=== PATIENT | male | born 1965 | race Caucasian/White ===

== ENCOUNTER 2017-09-02 19:55 | Emergency (ER) | payer MEDICAID, OTHER ==
[~2017-09-02] VITALS: Ht 170.2 cm; Wt 65.0 kg
[~2017-09-02 19:55] MED LIST: ALBU8.5H4 IH; CYCL-1 PO; FLUT16SP2 NS; HYDR-565 PO; NO HOME MEDS; [UNRECOGNIZED DRUG - CODE] PO
[2017-09-02] MEDS ORDERED: ketorolac trometh inj. 60 MG/2 ML VIAL IM ONE (22:20)
[2017-09-02] MEDS ORDERED: diazepam 5mg tablet PO ONE (22:25)
[2017-09-02] MEDS ORDERED: HYDROcodone/acetaminophen 10/325mg tab PO ONE (22:25)
[2017-09-02] MEDS ORDERED: CYCL-1 PO (22:44)
[2017-09-02] MEDS ORDERED: IBUP-1984 PO (22:44)
[2017-09-02] MEDS ORDERED: HYDR-565 PO (22:44)
[2017-09-02 23:07] VITALS: BP 162/94
== END 2017-09-02 23:08 | disposition home or self-care (01) ==
LOC: ER 19:56
DX: G89.29 Other chronic pain (principal); M54.9 Dorsalgia, unspecified; F12.90 Cannabis use, unspecified, uncomplicated; Z88.5 Allergy status to narcotic agent; Z79.899 Other long term (current) drug therapy
CPT/HCPCS: 96372; 99284; J1885

== ENCOUNTER 2018-01-17 09:57 | Emergency (ER) | payer MEDICAID, OTHER ==
[~2018-01-17] VITALS: Ht 170.2 cm; Wt 64.0 kg
[~2018-01-17 09:57] MED LIST changes: +HYDR-4353 PO; -HYDR-565 PO
[2018-01-17 09:59] VITALS: BP 173/96
[2018-01-17] MEDS ORDERED: ketorolac tromethamine 15mg/ml inj. IM ONE (10:20)
[2018-01-17] MEDS ORDERED: AMOX500C2 PO (10:34)
== END 2018-01-17 10:46 | disposition home or self-care (01) ==
LOC: ER 09:57
DX: K04.7 Periapical abscess without sinus (principal); R22.0 Localized swelling, mass and lump, head; K02.9 Dental caries, unspecified; K06.1 Gingival enlargement; F12.90 Cannabis use, unspecified, uncomplicated; Z88.6 Allergy status to analgesic agent
CPT/HCPCS: 96372; 99283; J1885

== ENCOUNTER 2018-02-25 22:26 | Emergency (ER) | payer MEDICAID, OTHER ==
[~2018-02-25] VITALS: Ht 170.2 cm; Wt 62.8 kg
[2018-02-25 23:04] LABS: BASOPHILS % (AUTO) 0.2 % (0-1); EOSINOPHILS % (AUTO) 0.8 % (0-6); HEMOGLOBIN 15.4 g/dl (14.0-17.9); LYMPHOCYTES # (AUTO) 0.5 X10'3 (1.1-4.8); LYMPHOCYTES % (AUTO) 10.1 % (21-51); MEAN CORPUSCULAR HEMOGLOBIN 31.7 PG (27.0-31.0); MEAN CORPUSCULAR HGB CONC 34.2 % (33.0-36.5); MEAN CORPUSCULAR VOLUME 92.8 FL (78-98); MEAN PLATELET VOLUME 7.3 FL (7.4-10.4); MONOCYTES # (AUTO) 0.5 X10'3 (0-0.9); MONOCYTES % (AUTO) 10.2 % (2-12); NEUTROPHILS # (AUTO) 4.1 X10'3 (1.8-7.7); NEUTROPHILS % (AUTO) 78.7 % (42-75); PLATELET COUNT 237 X10'3 (140-440); RED BLOOD COUNT 4.84 X10'6 (4.70-6.10); WHITE BLOOD COUNT 5.3 X10'3 (4.5-11.0)
[2018-02-25] MEDS ORDERED: ondansetron/PF 4mg/2ml inj IV ONE (23:15)
[2018-02-25] MEDS ORDERED: normal saline 1000ML IV soln IVB ONE (23:15)
[2018-02-25 23:17] LABS: ALANINE AMINOTRANSFERASE 27 U/L (12-78); ALKALINE PHOSPHATASE 77 IU/L (46-116); ANION GAP 14 (8-16); ASPARTATE AMINO TRANSFERASE 31 U/L (10-37); BILIRUBIN,TOTAL 0.5 MG/DL (0.1-1.0); BLOOD UREA NITROGEN 15 MG/DL (7-18); BUN/CREATININE RATIO 18.3 (5.4-32.0); CALCIUM 9.3 MG/DL (8.5-10.1); CHLORIDE 96 MMOL/L (99-107); CREATININE 0.82 MG/DL (0.60-1.10); GLUCOSE 83 MG/DL (70-104); LIPASE 156 U/L (73-393); POTASSIUM 3.6 MMOL/L (3.5-5.1); SODIUM 136 MMOL/L (135-145); TOTAL CARBON DIOXIDE 26.3 MMOL/L (24-32); TOTAL PROTEIN 8.1 G/DL (6.4-8.2); eGFR > 90 ML/MIN
[2018-02-25 23:21] LABS: CLARITY,URINE CLEAR (Clear); COLOR,URINE YELLOW (Yellow); GLUCOSE, URINE NEGATIVE (Neg); KETONES,URINE 15 mg/dl (Neg); LEUKOCYTE ESTERASE ,URINE NEGATIVE (Neg); NITRITES, URINE NEGATIVE (Neg); OCCULT BLOOD,URINE NEGATIVE (Neg); PROTEIN,URINE NEGATIVE (Neg); UROBILINOGEN,URINE 0.2 E.U/dL (0.2-1.0)
[2018-02-25 23:22] LABS: UA COLLECTION TYPE CLN CATCH MIDSTREAM
[2018-02-25 23:24] LABS: INR 1.1 INR; PROTHROMBIN TIME 10.8 SECONDS (9.0-12.0)
[2018-02-25] MEDS ORDERED: morphine 4 MG/ML inj SYRINge IV ONE (23:55)
[2018-02-26 00:30] VITALS: BP 165/93
== END 2018-02-26 00:58 | disposition home or self-care (01) ==
LOC: ER 22:26
DX: R10.84 Generalized abdominal pain (principal); R11.0 Nausea; G89.29 Other chronic pain; F12.90 Cannabis use, unspecified, uncomplicated; Z88.5 Allergy status to narcotic agent; Z79.899 Other long term (current) drug therapy
CPT/HCPCS: 36415; 74176; 80053; 81003; 83690; 85025; 85610; 96374; 96375; 99284; J2270; J2405; J7030

== ENCOUNTER 2018-10-25 12:22 | Emergency (ER) | payer SELFPAY ==
[~2018-10-25] VITALS: Ht 170.2 cm; Wt 58.0 kg
[2018-10-25] MEDS ORDERED: triamcinolone acetonide 40mg/ml inj IM ONE (14:05)
[2018-10-25] MEDS ORDERED: ketorolac trometh inj. 60 MG/2 ML VIAL IM ONE (14:05)
[2018-10-25] MEDS ORDERED: METH4TAB81 PO (14:32)
[2018-10-25 14:55] VITALS: BP 164/93
== END 2018-10-25 15:07 | disposition home or self-care (01) ==
LOC: ER 12:22
DX: M25.511 Pain in right shoulder (principal); G89.29 Other chronic pain; F10.99 Alcohol use, unspecified with unspecified alcohol-induced disorder; F12.90 Cannabis use, unspecified, uncomplicated; Z88.5 Allergy status to narcotic agent; Z79.899 Other long term (current) drug therapy; Y90.9 Presence of alcohol in blood, level not specified
CPT/HCPCS: 73030; 96372; 99283; J1885; J3301

== ENCOUNTER 2021-07-07 22:08 | Inpatient (IN) | payer OTHER ==
[~2021-07-07] VITALS: Ht 167.6 cm; Wt 65.9 kg
[~2021-07-07 22:08] MED LIST changes: +METH4TAB81 PO
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
[2021-07-08] VITALS (11 sets, daily range): BP systolic 118–150; BP diastolic 67–79
[2021-07-08 00:51] LABS: BASOPHILS % (AUTO) 0.7 % (0-1); EOSINOPHILS # (AUTO) 0.3 X10'3 (0-0.9); EOSINOPHILS % (AUTO) 4.2 % (0-6); HEMOGLOBIN 15.2 g/dl (14.0-17.9); LYMPHOCYTES # (AUTO) 2.2 X10'3 (1.1-4.8); LYMPHOCYTES % (AUTO) 34.2 % (21-51); MEAN CORPUSCULAR HEMOGLOBIN 32.7 PG (27.0-31.0); MEAN CORPUSCULAR HGB CONC 34.5 g/dL (33.0-36.5); MEAN CORPUSCULAR VOLUME 94.9 FL (78-98); MEAN PLATELET VOLUME 7.8 FL (7.4-10.4); MONOCYTES # (AUTO) 0.6 X10'3 (0-0.9); MONOCYTES % (AUTO) 8.9 % (2-12); NEUTROPHILS # (AUTO) 3.3 X10'3 (1.8-7.7); PLATELET COUNT 240 X10'3 (140-440); RED BLOOD COUNT 4.64 X10'6 (4.70-6.10); RED CELL DISTRIBUTION WIDTH 13.2 % (11.5-14.5); WHITE BLOOD COUNT 6.3 X10'3 (4.5-11.0)
[2021-07-08 00:59] LABS: APTT 27 SECONDS (22-32)
[2021-07-08 01:01] LABS: ALANINE AMINOTRANSFERASE 40 U/L (12-78); ALBUMIN 3.7 G/DL (3.4-5.0); ALBUMIN/GLOBULIN RATIO 0.9 (1.1-1.5); ALKALINE PHOSPHATASE 69 IU/L (46-116); ANION GAP 12 (8-16); ASPARTATE AMINO TRANSFERASE 37 U/L (10-37); BILIRUBIN,TOTAL 0.3 MG/DL (0.1-1.0); BLOOD UREA NITROGEN 12 MG/DL (7-18); BUN/CREATININE RATIO 16.9 (5.4-32.0); CALCIUM 8.3 MG/DL (8.5-10.1); CHLORIDE 105 MMOL/L (99-107); CREATININE 0.71 MG/DL (0.60-1.10); GLUCOSE 76 MG/DL (70-104); POTASSIUM 3.9 MMOL/L (3.5-5.1); SODIUM 142 MMOL/L (135-145); TOTAL CARBON DIOXIDE 25.1 MMOL/L (24-32); TOTAL PROTEIN 7.8 G/DL (6.4-8.2); eGFR > 90 ML/MIN
[2021-07-08 01:03] LABS: ETHANOL 0.275 GM/DL (0.0-0.010)
[2021-07-08 01:35] LABS: URINE AMPHETAMINE SCREEN NEGATIVE (Neg); URINE BARBITUATE SCREEN NEGATIVE (Neg); URINE BENZODIAZEPINES SCREEN NEGATIVE (Neg); URINE CANNABINOID SCREEN POSITIVE (Neg); URINE COCAINE SCREEN NEGATIVE (Neg); URINE METHADONE SCREEN NEGATIVE (Neg); URINE OPIATE SCREEN NEGATIVE (Neg); URINE PHENCYCLIDINE SCREEN NEGATIVE (Neg)
[2021-07-08 01:51] LABS: CLARITY,URINE CLEAR (Clear); COLOR,URINE YELLOW (Yellow); GLUCOSE, URINE NEGATIVE (Neg); KETONES,URINE NEGATIVE (Neg); LEUKOCYTE ESTERASE ,URINE NEGATIVE (Neg); NITRITES, URINE NEGATIVE (Neg); OCCULT BLOOD,URINE NEGATIVE (Neg); PH,URINE 5.5 (4.8-8.0); PROTEIN,URINE NEGATIVE (Neg); UROBILINOGEN,URINE 0.2 E.U/dL (0.2-1.0)
[2021-07-08 01:54] LABS: UA COLLECTION TYPE CLN CATCH MIDSTREAM
--- NOTE | 2021-07-08 04:30 | NUR ---
SONS PHONE NUMBER IS - RICHI SARABIA. CALL IF CONDITION CHANGES, NEEDS TRANSPORT, OR PT GETS MOVED. OR CALL , EVAN STALLWORTH .
[2021-07-08] MEDS ORDERED: magnesium 4gm in 100ml NS 100 ML IV PRN (04:50)
[2021-07-08] MEDS ORDERED: PERFLUTREN PROTEIN-A MICROSPHR (Optison) 0.22 MG/ML 3ML VIAL IV PRN (04:50)
[2021-07-08] MEDS ORDERED: acetaminophen 325mg tablet PO ONE ×2 (04:50)
[2021-07-08] MEDS ORDERED: acetaminophen 325mg tablet PO PRN (04:50)
[2021-07-08] MEDS ORDERED: magnesium 2GM in 50ml NS 50 ML IV PRN (04:50)
[2021-07-08] MEDS ORDERED: ondansetron/PF 4mg/2ml inj IV PRN (04:50)
[2021-07-08] MEDS ORDERED: magnesium Cl slow-release 64mg tablet PO PRN (04:50)
[2021-07-08] MEDS ORDERED: potassium CL 10mEq/100ml bag 100 ML IV PRN (04:50)
[2021-07-08] MEDS ORDERED: POTASSIUM BICARB 20meq eff tab 20 MEQ TABLET.EFF PO PRN ×2 (04:50)
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
--- NOTE | 2021-07-08 05:37 | NUR ---
PT NOW SLEEPING IN BED AFTER BEING AWAKE ALL NIGHT. VITAL SIGNS ARE ALL WNL. TYLENOL DOSAGE THERAPUTIC FOR PT.
--- NOTE | 2021-07-08 06:33 | NUR ---
Pts O2 sats 87-89% during sleep, 2L O2 via NC applied and sats now 95%. Pt reports constant generalized SANCHEZ and C/O having had intermittent CP past 3 days. Pt reports yesterday started having CP, diaphoresis, increased weakness and started having difficulty talking. Pt speech clear, currently without CP, reports generalized SANCHEZ and without neuro deficits.
--- NOTE | 2021-07-08 07:15 | NUR ---
Report given to ANAY Ordaz. Pt to go to room 0906V
--- NOTE | 2021-07-08 07:15 | NUR ---
Patient in room [facility]TH[facility] 4024A. I have received report from SARAH RN FROM ER and had the opportunity to ask questions and assume patient care.
[2021-07-08] MEDS: K and/or MAG REPLACEMENT MC SCH ×2 (08:00→20:00)
[2021-07-08 08:05] LABS: MAGNESIUM 1.7 MG/DL (1.5-2.4); POTASSIUM 3.5 MMOL/L (3.5-5.1)
[2021-07-08] MEDS ORDERED: nitroGLYCERIN 0.4mg SUBLingual tab SL PRN (10:50)
[2021-07-08] MEDS ORDERED: metoprolol tartrate 1mg/ml inj IV PRN (10:50)
[2021-07-08] MEDS ORDERED: regadenoson 0.4mg/5ml syringe IV PRN (10:50)
[2021-07-08] MEDS ORDERED: aminophylline 250mg/10ml inj. IV PRN (10:50)
[2021-07-08] MEDS ORDERED: aminophylline 500mg/20ml vial ONE (13:16)
[2021-07-08] MEDS ORDERED: iohexol 350MG/ML 100ml bottle IV ONE (16:57)
[2021-07-08] MEDS: aspirin 81mg tab.chew PO SCH (18:04)
--- NOTE | 2021-07-08 18:47 | NUR ---
Problems reprioritized. Patient report given, questions answered & plan of care reviewed with ANAY ISSA.
[2021-07-09 06:00] VITALS: BP 156/78
[2021-07-09 06:36] LABS: BASOPHILS # (AUTO) 0.1 X10'3 (0-0.2); BASOPHILS % (AUTO) 0.7 % (0-1); EOSINOPHILS # (AUTO) 0.2 X10'3 (0-0.9); EOSINOPHILS % (AUTO) 1.9 % (0-6); HEMATOCRIT 42.4 % (42.0-52.0); HEMOGLOBIN 14.5 g/dl (14.0-17.9); LYMPHOCYTES # (AUTO) 1.7 X10'3 (1.1-4.8); LYMPHOCYTES % (AUTO) 20.9 % (21-51); MEAN CORPUSCULAR HEMOGLOBIN 32.6 PG (27.0-31.0); MEAN CORPUSCULAR HGB CONC 34.3 g/dL (33.0-36.5); MEAN CORPUSCULAR VOLUME 95.3 FL (78-98); MEAN PLATELET VOLUME 7.4 FL (7.4-10.4); MONOCYTES # (AUTO) 0.8 X10'3 (0-0.9); MONOCYTES % (AUTO) 10.3 % (2-12); NEUTROPHILS # (AUTO) 5.3 X10'3 (1.8-7.7); NEUTROPHILS % (AUTO) 66.2 % (42-75); PLATELET COUNT 218 X10'3 (140-440); RED BLOOD COUNT 4.45 X10'6 (4.70-6.10)
[2021-07-09 06:55] LABS: ALBUMIN 3.2 G/DL (3.4-5.0); ANION GAP 5 (8-16); BLOOD UREA NITROGEN 17 MG/DL (7-18); BUN/CREATININE RATIO 22.7 (5.4-32.0); CALCIUM 8.3 MG/DL (8.5-10.1); CHLORIDE 102 MMOL/L (99-107); CHOL/HDL RATIO 2.5 (0.00-4.99); CHOLESTEROL 199 MG/DL (0-200); CREATININE 0.75 MG/DL (0.60-1.10); GLUCOSE 96 MG/DL (70-104); HDL CHOLESTEROL 80 MG/DL (35-60); LDL CHOLESTEROL 108 MG/DL (50-100); SODIUM 137 MMOL/L (135-145); TRIGLYCERIDES 53 MG/DL (20-135); eGFR > 90 ML/MIN
--- NOTE | 2021-07-09 07:21 | NUR ---
Patient in room [facility]TH[facility] 4024A. I have received report from ANAY ISSA and had the opportunity to ask questions and assume patient care.
[2021-07-09] MEDS: K and/or MAG REPLACEMENT MC SCH (08:00)
[2021-07-09] MEDS: aspirin 81mg tab.chew PO SCH (09:20)
[2021-07-09 10:00] VITALS: BP 141/65
[2021-07-09] MEDS ORDERED: LORA-269 PO (10:24)
[2021-07-09] MEDS ORDERED: BUPIVAcaine 0.5% inj/PF 30 ML ONE (11:50)
[2021-07-09] MEDS ORDERED: vancomycin 1,000mg inj ONE (12:34)
--- NOTE | 2021-07-09 13:06 | NUR ---
PATIENT STABLE AND APPROPRIATE FOR DISCHARGE, IV TAKEN OUT, TELE REMOVED, EDUCATION GIVEN, NEW MEDS E-SCRIPTED TO PREFERRED PHARMACY, ALL BELONGINGS SENT WITH PATIENT, PATIENT WALKED HOME WITH HIS SON, PATIENT STATED HE LIVED CLOSE
== END 2021-07-09 13:06 | disposition home or self-care (01) | DRG 313 ==
LOC: ER 22:14 → ED HOLD 07-08 04:52 → EDBEDREQ 07-08 06:35 → ORTHO 4S 07-08 07:46
PROVIDERS: ADMIT Internal Medicine; ATTEND Internal Medicine
PROC: 4A02XM4 Measurement of Cardiac Total Activity, External Approach (ICD-10-PCS; principal; 2021-07-08)
PROC: 3E033HZ Introduction of Radioactive Substance into Peripheral Vein, Percutaneous Approach (ICD-10-PCS; 2021-07-08)
PROC: B3251ZZ Computerized Tomography (CT Scan) of Bilateral Common Carotid Arteries using Low Osmolar Contrast (ICD-10-PCS; 2021-07-08)
PROC: B32G1ZZ Computerized Tomography (CT Scan) of Bilateral Vertebral Arteries using Low Osmolar Contrast (ICD-10-PCS; 2021-07-08)
PROC: B32R1ZZ Computerized Tomography (CT Scan) of Intracranial Arteries using Low Osmolar Contrast (ICD-10-PCS; 2021-07-08)
PROC: B3281ZZ Computerized Tomography (CT Scan) of Bilateral Internal Carotid Arteries using Low Osmolar Contrast (ICD-10-PCS; 2021-07-08)
DX: R07.89 Other chest pain (principal); F12.90 Cannabis use, unspecified, uncomplicated; F17.210 Nicotine dependence, cigarettes, uncomplicated; F41.9 Anxiety disorder, unspecified; F32.A Depression, unspecified; R51.9 Headache, unspecified; G89.29 Other chronic pain; M54.9 Dorsalgia, unspecified; H53.8 Other visual disturbances; Z88.5 Allergy status to narcotic agent
CPT/HCPCS: 36415; 70450; 70496; 70498; 70551; 71045; 78452; 80048; 80053; 80061; 80305; 80320; 81003; 82948; 83735; 84132; 84484; 85025; 85610; 85730; 93005; 93017; 93306; 97116; 97161; 97530; 99285; A9500; G0378; J0280; J2785; J3370; Q9967; S0020

== ENCOUNTER 2021-08-11 10:06 | Emergency (ER) | payer MEDICAID, OTHER ==
[~2021-08-11] VITALS: Ht 167.6 cm; Wt 64.2 kg
[~2021-08-11 10:06] MED LIST changes: -ALBU8.5H4 IH; -CYCL-1 PO; -FLUT16SP2 NS; -HYDR-4353 PO; +LORA-269 PO; -METH4TAB81 PO; -NO HOME MEDS; -[UNRECOGNIZED DRUG - CODE] PO
[2021-08-11 10:26] VITALS: BP 147/102
--- NOTE | 2021-08-11 10:28 | NUR ---
Larissa Rudolph QUALITY CONTROL ASSISTANT, in room during triage.
[2021-08-11] MEDS: TETanus/Pertussis (Acell)/Diphther VAC/PF (Tdap-Adult) 0.5ml syringe IMVAC ONE (11:17)
== END 2021-08-11 11:37 | disposition home or self-care (01) ==
LOC: ER 10:06
DX: S01.81XA Laceration without foreign body of other part of head, initial encounter (principal); F10.129 Alcohol abuse with intoxication, unspecified; G89.29 Other chronic pain; F12.90 Cannabis use, unspecified, uncomplicated; Z72.89 Other problems related to lifestyle; Z88.8 Allergy status to other drugs, medicaments and biological substances; Z79.899 Other long term (current) drug therapy; W01.0XXA Fall on same level from slipping, tripping and stumbling without subsequent striking against object, initial encounter; Y93.89 Activity, other specified; Y92.89 Other specified places as the place of occurrence of the external cause; Y99.8 Other external cause status; Y90.9 Presence of alcohol in blood, level not specified
CPT/HCPCS: 12011; 70450; 90471; 90715; 99284

== ENCOUNTER 2022-06-04 17:57 | Emergency (ER) | payer MEDICAID ==
[~2022-06-04] VITALS: Ht 170.2 cm; Wt 65.9 kg
[2022-06-04 18:24] LABS: BASOPHILS # (AUTO) 0.1 X10'3 (0-0.2); BASOPHILS % (AUTO) 0.8 % (0-1); EOSINOPHILS # (AUTO) 0.1 X10'3 (0-0.9); EOSINOPHILS % (AUTO) 1.7 % (0-6); HEMATOCRIT 47.1 % (42.0-52.0); HEMOGLOBIN 16.4 g/dl (14.0-17.9); LYMPHOCYTES # (AUTO) 1.4 X10'3 (1.1-4.8); LYMPHOCYTES % (AUTO) 18.1 % (21-51); MEAN CORPUSCULAR HEMOGLOBIN 33.6 PG (27.0-31.0); MEAN CORPUSCULAR HGB CONC 34.8 g/dL (33.0-36.5); MEAN CORPUSCULAR VOLUME 96.8 FL (78-98); MEAN PLATELET VOLUME 7.2 FL (7.4-10.4); MONOCYTES # (AUTO) 0.6 X10'3 (0-0.9); MONOCYTES % (AUTO) 8.1 % (2-12); NEUTROPHILS # (AUTO) 5.5 X10'3 (1.8-7.7); NEUTROPHILS % (AUTO) 71.3 % (42-75); PLATELET COUNT 178 X10'3 (140-440); RED BLOOD COUNT 4.86 X10'6 (4.70-6.10); RED CELL DISTRIBUTION WIDTH 13.9 % (11.5-14.5); WHITE BLOOD COUNT 7.7 X10'3 (4.5-11.0)
[2022-06-04 18:31] LABS: ALANINE AMINOTRANSFERASE 96 U/L (12-78); ALBUMIN 3.8 G/DL (3.4-5.0); ALBUMIN/GLOBULIN RATIO 0.9 (1.1-1.5); ALKALINE PHOSPHATASE 84 IU/L (46-116); ANION GAP 11 (8-16); ASPARTATE AMINO TRANSFERASE 108 U/L (10-37); BILIRUBIN,TOTAL 0.9 MG/DL (0.1-1.0); BLOOD UREA NITROGEN 8 MG/DL (7-18); BUN/CREATININE RATIO 13.1 (10.0-20.0); CALCIUM 9.1 MG/DL (8.5-10.1); CHLORIDE 100 MMOL/L (99-107); CREATININE 0.61 MG/DL (0.60-1.10); GLUCOSE 103 MG/DL (70-104); POTASSIUM 3.8 MMOL/L (3.5-5.1); SODIUM 138 MMOL/L (135-145); TOTAL CARBON DIOXIDE 26.7 MMOL/L (24-32); TOTAL PROTEIN 8.1 G/DL (6.4-8.2); eGFR > 90 ML/MIN
[2022-06-04 18:37] LABS: MAGNESIUM 1.8 MG/DL (1.5-2.4)
[2022-06-04] MEDS ORDERED: acetaminophen 325mg tablet PO ONE (23:50)
[2022-06-04] MEDS ORDERED: ketorolac trometh. 30mg/ml inj. IV ONE (23:50)
[2022-06-04] MEDS ORDERED: CefTRIAXone 2gm/D5W 50ml BAG 50 ML IV ONE (23:50)
[2022-06-05] MEDS ORDERED: IBUP-1985 PO (01:34)
[2022-06-05] MEDS ORDERED: AMOX-117 PO (01:34)
[2022-06-05 01:44] VITALS: BP 150/74
== END 2022-06-05 01:45 | disposition home or self-care (01) ==
LOC: ER 17:58
DX: K08.89 Other specified disorders of teeth and supporting structures (principal); R51.9 Headache, unspecified; G89.29 Other chronic pain; M54.9 Dorsalgia, unspecified; F31.9 Bipolar disorder, unspecified; F17.200 Nicotine dependence, unspecified, uncomplicated; Z88.5 Allergy status to narcotic agent; Z79.899 Other long term (current) drug therapy
CPT/HCPCS: 36415; 70450; 80053; 83735; 83880; 84484; 85025; 93005; 96365; 96375; 99285; J0696; J1885

== ENCOUNTER 2024-02-01 15:48 | Emergency (ER) | payer MEDICAID, OTHER ==
[~2024-02-01] VITALS: Ht 175.3 cm; Wt 74.5 kg
[~2024-02-01 15:48] MED LIST changes: +IBUP-1985 PO
[2024-02-01] MEDS: phenylephrine 1% (X-tra strg) 15ml nasal spray NS ONE (17:16)
[2024-02-01 17:56] LABS: BASOPHILS % (AUTO) 0.5 % (0-1); EOSINOPHILS % (AUTO) 0.6 % (0-6); HEMATOCRIT 38.2 % (42.0-52.0); HEMOGLOBIN 13.2 g/dl (14.0-17.9); LYMPHOCYTES # (AUTO) 1.1 X10'3 (1.1-4.8); LYMPHOCYTES % (AUTO) 14.4 % (21-51); MEAN CORPUSCULAR HEMOGLOBIN 33.8 PG (27.0-31.0); MEAN CORPUSCULAR HGB CONC 34.5 g/dL (33.0-36.5); MEAN PLATELET VOLUME 7.2 FL (7.4-10.4); MONOCYTES # (AUTO) 0.8 X10'3 (0-0.9); MONOCYTES % (AUTO) 10.6 % (2-12); NEUTROPHILS # (AUTO) 5.8 X10'3 (1.8-7.7); NEUTROPHILS % (AUTO) 73.9 % (42-75); PLATELET COUNT 203 X10'3 (140-440); RED CELL DISTRIBUTION WIDTH 13.4 % (11.5-14.5); WHITE BLOOD COUNT 7.9 X10'3 (4.5-11.0)
[2024-02-01 18:05] LABS: PROTHROMBIN TIME 10.9 SECONDS (9.0-12.0)
[2024-02-01] MEDS ORDERED: AMOX-117 PO (18:23)
[2024-02-01 18:36] VITALS: BP 150/80; PULSE 80; RESP 18; TEMP 98.2; O2SAT 99
== END 2024-02-01 18:40 | disposition home or self-care (01) ==
LOC: ER 15:49
DX: R04.0 Epistaxis (principal); G89.29 Other chronic pain; Z88.5 Allergy status to narcotic agent; Z79.899 Other long term (current) drug therapy
CPT/HCPCS: 30905; 36415; 85025; 85610; 99284

== ENCOUNTER 2024-02-04 14:03 | Emergency (ER) | payer SELFPAY ==
[~2024-02-04] VITALS: Ht 167.6 cm; Wt 59.6 kg
[~2024-02-04 14:03] MED LIST changes: +AMOX-117 PO
[2024-02-04 14:12] VITALS: BP 135/84; PULSE 80; RESP 16; TEMP 98.4; O2SAT 100
== END 2024-02-04 14:41 | disposition home or self-care (01) ==
LOC: ER 14:04
DX: Z48.00 Encounter for change or removal of nonsurgical wound dressing (principal); G89.29 Other chronic pain; F32.A Depression, unspecified; F12.90 Cannabis use, unspecified, uncomplicated; Z88.5 Allergy status to narcotic agent; Z79.2 Long term (current) use of antibiotics; Z79.1 Long term (current) use of non-steroidal anti-inflammatories (NSAID); Z79.899 Other long term (current) drug therapy
CPT/HCPCS: 99282